=== PATIENT | male | born 2000 | race Caucasian/White ===

== ENCOUNTER 2025-01-15 00:08 | Emergency (ER) | payer MEDICAID ==
[~2025-01-15] VITALS: Ht 175.3 cm; Wt 106.3 kg
[2025-01-15 00:43] VITALS: O2SAT 100
[2025-01-15] MEDS: IBUPROFEN 600MG TABLET PO ONE (03:37)
[2025-01-15] MEDS: SULFAMETHOXAZOLE/TRIMETHOPRIM 800/160MG TABLET PO ONE (03:37)
[2025-01-15] MEDS ORDERED: MUPI1OIN4 TP (05:22)
[2025-01-15] MEDS ORDERED: SULF1TAB48 MT (05:22)
[2025-01-15] MEDS ORDERED: IBUP-1455 MT (05:22)
[2025-01-15 05:25] VITALS: BP 116/69; PULSE 61; RESP 18; TEMP 36.5; O2SAT 98
== END 2025-01-15 05:36 | disposition home or self-care (01) ==
LOC: ER 00:08
DX: L03.031 Cellulitis of right toe (principal); Z79.899 Other long term (current) drug therapy
CPT/HCPCS: 73630; 99283